=== PATIENT | female | born 1950 | race Caucasian/White ===

== ENCOUNTER 2020-11-19 07:42 | Emergency (ER) | payer MEDICARE, BC ==
[~2020-11-19] VITALS: Ht 167.6 cm; Wt 68.5 kg
[2020-11-19 08:19] LABS: BASOPHILS PERCENT AUTO 1 % (0-2); EOSINOPHILS ABSOLUTE AUTO 0.36 K/mm3 (0.00-0.68); EOSINOPHILS PERCENT AUTO 4 % (0-6); Hematocrit 34.8 % (33.0-51.0); Hemoglobin 11.6 g/dL (11.5-16.0); IMMATURE GRAN ABSOLUTE AUTO 0.03 K/mm3 (0.00-0.10); IMMATURE GRAN PERCENT AUTO 0 % (0-1); LYMPHOCYTES ABSOLUTE AUTO 1.96 K/mm3 (0.84-5.20); LYMPHOCYTES PERCENT AUTO 24 % (21-46); MONOCYTES ABSOLUTE AUTO 0.71 K/mm3 (0.16-1.47); MONOCYTES PERCENT AUTO 9 % (4-13); Mean Corpuscular HGB 30.9 pg (26.0-34.0); Mean Corpuscular HGB Conc 33.3 g/dL (31.5-36.5); Mean Corpuscular Volume 93 fL (80-100); Mean Platelet Volume 9.8 fL (9.1-12.4); NEUTROPHILS ABSOLUTE AUTO 4.98 K/mm3 (1.96-9.15); NEUTROPHILS PERCENT AUTO 61 % (41-73); Platelet Count 359 K/mm3 (150-400); RDW Standard Deviation 44.1 fL (35.1-46.3); Red Blood Cell Count 3.76 M/mm3 (3.80-5.20); White Blood Cell Count 8.14 K/mm3 (4.00-11.30)
[2020-11-19] MEDS ORDERED: EZET10 PO (08:38)
[2020-11-19] MEDS ORDERED: ALEN10 PO (08:38)
[2020-11-19] MEDS ORDERED: LISI20 PO (08:38)
[2020-11-19] MEDS ORDERED: FENO145 PO (08:38)
[2020-11-19] MEDS ORDERED: LEVSOD25 PO (08:39)
[2020-11-19] MEDS ORDERED: PRAM.125 PO (08:39)
[2020-11-19] MEDS ORDERED: Acyclovir400 MG PO (08:39)
[2020-11-19 08:40] LABS: Alanine Aminotransfer (ALT/SGP 23 U/L (12-78); Albumin, Blood 3.5 g/dL (3.4-5.0); Albumin/Globulin Ratio 0.8 (0.8-1.8); Alk Phos 44 U/L (50-136); Anion Gap 6 mmol/L (6-16); Aspartate Aminotrans (AST/SGOT 21 U/L (12-37); Bilirubin, Total 0.3 mg/dL (0.1-1.0); Blood Urea Nitrogen 20 mg/dL (8-24); CO2, Blood 28 mmol/L (21-32); Calcium, Blood 8.9 mg/dL (8.5-10.1); Chloride, Blood 101 mmol/L (98-108); Creatinine, Blood 0.83 mg/dL (0.40-1.00); Globulin, Blood 4.3 g/dL (2.2-4.0); Glomerular Filtration Rate >60 (60-); Glucose, Blood 86 mg/dL (70-99); Potassium, Blood 4.2 mmol/L (3.5-5.5); Sodium, Blood 135 mmol/L (136-145); Total Protein, Blood 7.8 g/dL (6.4-8.2)
[2020-11-19 08:41] LABS: Appearance, Urine Clear (Clear); Bilirubin, Urine Neg (Neg); Blood, Urine Neg (Neg); Color, Urine Yellow (P-Yellow); Glucose Qualitative, Urine Neg (Neg); Ketones, Urine Neg (Neg); Leukocyte Esterase, Urine 1+ (Neg); Nitrite, Urine Neg (Neg); Protein, Urine Neg (Neg); Specific Gravity, Urine 1.015 (1.003-1.022); Urobilinogen, Urine NORM (Normal)
[2020-11-19 09:13] LABS: Bacteria Not Seen /hpf; Red Blood Cells, Urine Not Seen /hpf (0-2); Squamous Epithelial Cells Not Seen /hpf (Few); White Blood Cells, Urine 0-2 /hpf (0-5)
[2020-11-19] MEDS ORDERED: AMOCLA875 PO (09:24)
== END 2020-11-19 09:30 | disposition home or self-care (01) ==
LOC: ER 07:42
PROVIDERS: Physician Assistant
DX: K57.32 Diverticulitis of large intestine without perforation or abscess without bleeding (principal); I10 Essential (primary) hypertension; Z88.8 Allergy status to other drugs, medicaments and biological substances; Z88.6 Allergy status to analgesic agent; Z88.5 Allergy status to narcotic agent; Z79.899 Other long term (current) drug therapy
CPT/HCPCS: 36415; 74177; 80053; 81001; 83690; 85025; 87086; 99284-25; Q9967

== ENCOUNTER 2021-10-21 09:27 | Day surgery (SDC) | payer MEDICARE ==
[~2021-10-21] VITALS: Ht 167.6 cm; Wt 71.7 kg
[~2021-10-21 09:27] MED LIST: ALEN10 PO; AMOCLA875 PO; Acyclovir400 MG PO; EZET10 PO; FENO145 PO; LEVSOD25 PO; LISI20 PO; PRAM.125 PO
== END 2021-10-21 11:59 | disposition home or self-care (01) ==
LOC: ORSCSDS 09:27
PROVIDERS: Student in an Organized Health Care Education/Training Program
PROC: 0DB58ZX Excision of Esophagus, Via Natural or Artificial Opening Endoscopic, Diagnostic (ICD-10-PCS; principal; 2021-10-21 10:45)
PROC: 0DBN8ZX Excision of Sigmoid Colon, Via Natural or Artificial Opening Endoscopic, Diagnostic (ICD-10-PCS; principal; 2021-10-21 10:45)
PROC: 0DBL8ZX Excision of Transverse Colon, Via Natural or Artificial Opening Endoscopic, Diagnostic (ICD-10-PCS; principal; 2021-10-21 10:45)
DX: K21.00 Gastro-esophageal reflux disease with esophagitis, without bleeding (principal); K57.30 Diverticulosis of large intestine without perforation or abscess without bleeding; Z87.19 Personal history of other diseases of the digestive system; D12.3 Benign neoplasm of transverse colon; K63.5 Polyp of colon; K63.89 Other specified diseases of intestine; K44.9 Diaphragmatic hernia without obstruction or gangrene; I10 Essential (primary) hypertension; Z87.891 Personal history of nicotine dependence
CPT/HCPCS: 88305; 88342; J2405; J2704; J7040; J7120

== ENCOUNTER → 2021-10-25 | Outpatient (CLI) | payer MEDICARE ==
[2021-10-25 18:21] LABS: Adenovirus F 40/41 Not Detected (NOT DETECT); Astrovirus Not Detected (NOT DETECT); Campylobacter Sp Not Detected (NOT DETECT); Cryptosporidium Not Detected (NOT DETECT); Cyclospora Cayetanensis Not Detected (NOT DETECT); E. Coli O157 Not Detected (NOT DETECT); Entamoeba Histolytica Not Detected (NOT DETECT); Enteroaggregative E. coli-EAEC Not Detected (NOT DETECT); Enteropathogenic E. coli-EPEC Not Detected (NOT DETECT); Enterotoxigenic E. coli-ETEC Not Detected (NOT DETECT); Giardia Lamblia Not Detected (NOT DETECT); Norovirus GI/GII Not Detected (NOT DETECT); Plesiomonas Shigelloides Not Detected (NOT DETECT); Rotavirus A Not Detected (NOT DETECT); Salmonella Sp Not Detected (NOT DETECT); Sapovirus Not Detected (NOT DETECT); Shiga Toxin-prod E. coli-STEC Not Detected (NOT DETECT); Shigella/Enteroin E. coli-EIEC Not Detected (NOT DETECT); Vibrio Cholerae Not Detected (NOT DETECT); Vibrio Sp Not Detected (NOT DETECT); Yersinia Enterocolitica Not Detected (NOT DETECT)
== END | disposition home or self-care (01) ==
LOC: LAB 14:10 → LAB SHORT 14:10
PROVIDERS: Student in an Organized Health Care Education/Training Program
DX: R19.7 Diarrhea, unspecified (principal)
CPT/HCPCS: 87507

== ENCOUNTER 2023-09-07 07:14 | Day surgery (SDC) | payer MEDICARE ==
[~2023-09-07] VITALS: Ht 167.6 cm; Wt 74.5 kg
[~2023-09-07 07:14] MED LIST changes: +Balanced Salt Epinephrine Irrigation Solution 500 mL IR SCH; +Lidocaine HCl/Pf 1% 5 ML VIAL ONE; +Lidocaine HCl/Pf 1% 5 ML VIAL XX SCH; +Moxifloxacin HCL 0.5 MG/0.1 ML 0.4MLSYR RIGHTEYE SCH; +NS 500 ML IV ONE; +PHENYLEPHRINE\\TROPICAMIDE\\TETRACAINE OPHTHALMIC DILATING SOLN RIGHTEYE PRN; +Povidone-Iodine 450 DROP/30 ML Solution RIGHTEYE SCH
[2023-09-07] MEDS ORDERED: NS 1,000 ML IV ONE (07:28)
[2023-09-07] MEDS ORDERED: OMEP20ER (07:31)
[2023-09-07] MEDS ORDERED: Phenylephrine Frt 10% Opth (ORSC) ONE (07:42)
[2023-09-07] MEDS ORDERED: Midazolam HCl 1MG / ML 2ML Vial ONE (08:00)
[2023-09-07] MEDS ORDERED: FentaNYL Citrate 50 MCG/ML 2 ML Injection ONE (08:00)
[2023-09-07] MEDS ORDERED: Tetracaine HCl 0.5% Opth Soln 15 ml RIGHTEYE ONE (08:13)
--- NOTE | 2023-09-07 09:48 | NUR ---
09/07/23 0948 Agusto Velarde PT INSTRUCTED TO MONITOR B/P AT HOME, AND FOLLOW UP WITH PCP IF NEEDED.
[2023-09-07 09:49] VITALS: BP 129/69
== END 2023-09-07 08:45 | disposition home or self-care (01) ==
LOC: ORSCSDS 07:14
PROVIDERS: Student in an Organized Health Care Education/Training Program
PROC: 08RJ3JZ Replacement of Right Lens with Synthetic Substitute, Percutaneous Approach (ICD-10-PCS; principal; 2023-09-07 08:30)
DX: H25.813 Combined forms of age-related cataract, bilateral (principal); K21.9 Gastro-esophageal reflux disease without esophagitis; I10 Essential (primary) hypertension; E78.5 Hyperlipidemia, unspecified; E03.9 Hypothyroidism, unspecified; Z79.899 Other long term (current) drug therapy
CPT/HCPCS: J2001; J2250; J3010; J7040; V2632

== ENCOUNTER → 2023-09-10 | Outpatient (CLI) | payer MEDICARE ==
[~2023-09-10] MED LIST changes: -Balanced Salt Epinephrine Irrigation Solution 500 mL IR SCH; +CEPHALEXIN125 MG/5 M; -Lidocaine HCl/Pf 1% 5 ML VIAL ONE; -Lidocaine HCl/Pf 1% 5 ML VIAL XX SCH; -Moxifloxacin HCL 0.5 MG/0.1 ML 0.4MLSYR RIGHTEYE SCH; -NS 500 ML IV ONE; +OMEP20ER; -PHENYLEPHRINE\\TROPICAMIDE\\TETRACAINE OPHTHALMIC DILATING SOLN RIGHTEYE PRN; -Povidone-Iodine 450 DROP/30 ML Solution RIGHTEYE SCH
== END ==
LOC: LAB SHORT 15:32 → LAB 15:32
DX: N39.0 Urinary tract infection, site not specified (principal)
CPT/HCPCS: 87077; 87086; 87186

== ENCOUNTER 2023-09-14 11:50 | Day surgery (SDC) | payer MEDICARE ==
[~2023-09-14] VITALS: Ht 167.6 cm; Wt 73.7 kg
[~2023-09-14 11:50] MED LIST changes: +Balanced Salt Epinephrine Irrigation Solution 500 mL IR SCH; -CEPHALEXIN125 MG/5 M; +Lidocaine HCl/Pf 1% 5 ML VIAL XX SCH; +Moxifloxacin HCL 0.5 MG/0.1 ML 0.4MLSYR LEFTEYE SCH; +NS 500 ML IV ONE; +PHENYLEPHRINE\\TROPICAMIDE\\TETRACAINE OPHTHALMIC DILATING SOLN LEFTEYE PRN; +Povidone-Iodine 450 DROP/30 ML Solution LEFTEYE SCH
[2023-09-14] MEDS ORDERED: CEPHALEXIN125 MG/5 M (12:16)
[2023-09-14] MEDS ORDERED: NS 500 ML IV ONE (12:32)
[2023-09-14] MEDS ORDERED: Tetracaine HCl 0.5% Opth Soln 15 ml LEFTEYE ONE (12:51)
--- NOTE | 2023-09-14 12:51 | NUR ---
09/14/23 [id number] Leticia Bobby PER PATIENT SHE CALLED DR WHITE'S OFFICE WEDNESDAY TO NOTIFY THAT SHE HAD A CURRENT BLADDER INFECTION AND IS TAKING ABX PER PATIENT NO FEVER
[2023-09-14] MEDS ORDERED: Midazolam HCl 1MG / ML 2ML Vial ONE (12:52)
[2023-09-14] MEDS ORDERED: FentaNYL Citrate 50 MCG/ML 2 ML Injection ONE (12:52)
[2023-09-14 13:43] VITALS: BP 120/62
== END 2023-09-14 13:35 | disposition home or self-care (01) ==
LOC: ORSCSDS 11:50
PROVIDERS: Student in an Organized Health Care Education/Training Program
PROC: 08RK3JZ Replacement of Left Lens with Synthetic Substitute, Percutaneous Approach (ICD-10-PCS; principal; 2023-09-14 13:00)
DX: H25.812 Combined forms of age-related cataract, left eye (principal); Z96.1 Presence of intraocular lens; I10 Essential (primary) hypertension; E78.5 Hyperlipidemia, unspecified; E03.9 Hypothyroidism, unspecified; Z79.899 Other long term (current) drug therapy
CPT/HCPCS: J2250; J3010; J7040; V2632

== ENCOUNTER 2023-11-11 23:50 | Emergency (ER) | payer MEDICARE ==
[~2023-11-11] VITALS: Ht 167.6 cm; Wt 73.9 kg
[~2023-11-11 23:50] MED LIST changes: -Balanced Salt Epinephrine Irrigation Solution 500 mL IR SCH; +CEPHALEXIN125 MG/5 M; -Lidocaine HCl/Pf 1% 5 ML VIAL XX SCH; -Moxifloxacin HCL 0.5 MG/0.1 ML 0.4MLSYR LEFTEYE SCH; -NS 500 ML IV ONE; -PHENYLEPHRINE\\TROPICAMIDE\\TETRACAINE OPHTHALMIC DILATING SOLN LEFTEYE PRN; -Povidone-Iodine 450 DROP/30 ML Solution LEFTEYE SCH
[2023-11-12] MEDS ORDERED: ACYC400 PO (02:35)
[2023-11-12 02:45] LABS: Source, Urine Clean Catch
[2023-11-12 03:19] LABS: Appearance, Urine Turbid (Clear); Bilirubin, Urine Neg (Neg); Blood, Urine 3+ (Neg); Color, Urine Yellow (P-Yellow); Glucose Qualitative, Urine Neg (Neg); Ketones, Urine Neg (Neg); Leukocyte Esterase, Urine 3+ (Neg); Nitrite, Urine Pos (Neg); Protein, Urine 2+ (Neg); Specific Gravity, Urine 1.015 (1.003-1.022); Urobilinogen, Urine NORM (Normal); pH, Urine 6.5 (5.0-8.0)
[2023-11-12 03:29] LABS: Amorphous Mod (0-Heavy); Bacteria Many /hpf; Squamous Epithelial Cells Few /hpf (Few); White Blood Cells, Urine TNTC /hpf (0-5)
[2023-11-12 03:32] VITALS: BP 160/83
[2023-11-12] MEDS ORDERED: Trimethoprim/Sulfamethoxazole DS Tab PO ONE (03:40)
[2023-11-12] MEDS ORDERED: SULTRIDS PO (03:41)
== END 2023-11-12 04:20 | disposition home or self-care (01) ==
LOC: ER 23:50
PROVIDERS: Emergency Medicine
DX: N39.0 Urinary tract infection, site not specified (principal); E78.00 Pure hypercholesterolemia, unspecified; I10 Essential (primary) hypertension; Z79.899 Other long term (current) drug therapy; Z88.6 Allergy status to analgesic agent; Z88.5 Allergy status to narcotic agent; Z88.8 Allergy status to other drugs, medicaments and biological substances
CPT/HCPCS: 81001; 87077; 87086; 87186; 99283; A9270

== ENCOUNTER → 2024-02-24 | Outpatient (CLI) | payer MEDICARE ==
[~2024-02-24] MED LIST changes: +ACYC400 PO; +SULTRIDS PO
[2024-02-25 11:19] LABS: Bacterial Vaginosis PCR Negative (NEGATIVE); Candida Group, PCR NOT DETECTED (NOT DETECT); Candida glabrata-krusei, PCR NOT DETECTED (NOT DETECT)
== END | disposition home or self-care (01) ==
LOC: LAB 12:00 → LAB SHORT 12:00
PROVIDERS: Obstetrics & Gynecology
DX: N76.0 Acute vaginitis (principal)
CPT/HCPCS: 87481; 87661; 87801